=== PATIENT | male | born 1950 | race Caucasian/White ===

== ENCOUNTER 2016-09-22 20:14 | Emergency (ER) | payer MEDICARE, BC ==
[2016-09-22] MEDS ORDERED: HYDROmorphone 2 MG/ML Syringe IM ONE (20:30)
--- NOTE | 2016-09-22 20:35 | EDM.PDOC ---
ED HPI GENERAL MEDICAL PROBLEM - General Chief Complaint: General Stated Complaint: L shoulder injury Time Seen by Provider: 09/22/16 20:20 Source of Information: Reports: Patient History Limitations: Reports: No Limitations - History of Present Illness INITIAL COMMENTS - FREE TEXT/NARRATIVE: According to patient he was riding on the horse and he fell off the horse back wards and landed on his left back. he did hurts some. Pt claims he got up and tried to get back on the horse and thew the saddle back on the horse and felt sharp pain and since then he is not able to move his shoulder. Most of his pain is over the upper mid scapula. No nausea or vomiting. No loss of consciousness. No pain with deep breathing or chest movement.No other complaints. Location: Reports: Back Quality: Reports: Ache Severity: Severe Improves with: Reports: None Worsens with: Reports: None - Related Data Allergies Allergy/AdvReac Type Severity Reaction Status Date / Time No Known Allergies Allergy Verified 09/22/16 20:17 Home Meds: Home Meds Lisinopril [Prinivil] 10 mg PO DAILY 07/08/13 [History] Metoprolol Tartrate [Lopressor] 100 PO DAILY 07/08/13 [History] Warfarin Sodium [Jantoven] 4 mg PO DAILY 07/08/13 [History] amLODIPine Besylate [Amlodipine Besylate] 10 PO 07/08/13 [History] atorvaSTATin Calcium [Atorvastatin Calcium] 80 PO DAILY 07/08/13 [History] Social & Family History - Tobacco Use Years of Tobacco use: 15 Used Tobacco, but Quit: Yes Month Tobacco Last Used: August Second Hand Smoke Exposure: Yes - Alcohol Use Days Per Week of Alcohol Use: 2 Number of Drinks Per Day: 1 Total Drinks Per Week: 2 - Recreational Drug Use Recreational Drug Use: No ED ROS GENERAL - Review of Systems Review Of Systems: See Below Constitutional: Denies: Fever, Chills HEENT: Denies: Sinus Problem, Throat Pain, Throat Swelling Respiratory: Denies: Shortness of Breath, Cough, Sputum Cardiovascular: Denies: Chest Pain, Lightheadedness GI/Abdominal: Denies: Abdominal Pain, Nausea, Vomiting : Denies: Flank Pain Musculoskeletal: Reports: Back Pain. Denies: Shoulder Pain, Arm Pain, Joint Pain, Joint Swelling Skin: Reports: Bruising. Denies: Pruritis, Rash ED EXAM, GENERAL - Physical Exam Exam: See Below Exam Limited By: No Limitations General Appearance: Alert, WD/WN, Mild Distress Eye Exam: Bilateral Eye: EOMI, PERRL Ears: Normal External Exam, Normal Canal, Hearing Grossly Normal, Normal TMs Nose: Normal Inspection, Normal Mucosa, No Blood Throat/Mouth: Normal Inspection, Normal Lips, Normal Teeth, Normal Gums, Normal Oropharynx, Normal Voice, No Airway Compromise Head: Atraumatic, Normocephalic Neck: Normal Inspection, Supple, Non-Tender, Full Range of Motion Respiratory/Chest: No Respiratory Distress, Lungs Clear, Normal Breath Sounds, No Accessory Muscle Use, Chest Non-Tender Cardiovascular: Normal Peripheral Pulses, Regular Rate, Rhythm, No Edema, No Gallop, No JVD, No Murmur, No Rub Back Exam: Other (left upper back: there is swelling and bruising over the left upper back in the lwoer scapular region. Tender to palpation. No obvious crepitus felt. Painful with movement , pt guards and refuses to move the left shoulder . There is no tenderness around the shoulder or right humerus.). No: Paraspinal Tenderness, Vertebral Tenderness Course - Vital Signs Text/Narrative:: Xray of the left scapula shows left 3rd and 4th rib fracture over the posterior aspect of the back. also there is questionable fracture at the angle of the scapular spine. I have reassured patient that he has left scapular and left 3rd and 4th rib fractures. There is no pnuemothorax. I have applied arm sling. He did received dilaudid 2mg for the pain. I have advised to take vicodin 5/325 1-2 tabs every 8 hrs and take extra strength tylenol . Deep breathing exercises every 2-3 hrs. Cold compresses. followup in the clinic in 2 wks for recheck. - Orders/Labs/Meds Orders: Active Orders 24 hr Category Date Time Status Scapula Lt [CR] Stat Exams 09/22/16 20:26 Taken Meds: Medications Discontinued Medications Generic Name Dose Route Start Last Admin Trade Name Freq PRN Reason Stop Dose Admin Hydromorphone HCl 2 mg 09/22/16 20:30 Dilaudid IM 09/22/16 20:31 ONETIME ONE Departure - Departure Time of Disposition: 21:30 Disposition: Home, Self-Care 01 Condition: Fair Clinical Impression: Closed left scapular fracture, Left rib fracture - Discharge Information Instructions: Acetaminophen; Hydrocodone tablets or capsules, Scapular Fracture , Rib Fracture, [id number] Referrals: PCP,None [Primary Care Provider] - Forms: ED Department Discharge Additional Instructions: Take provided Vicodin as directed: 1-2 tablets by mouth every 8 hours for pain. Alternate with 1,000mg Extra Strength Tylenol every 8 hours for pain. 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 Apply cold compress to back, area of affected ribs , for 10 minutes every 2-3 hours for additional comfort. Be sure to deep breathe every hour (10 breaths/hour). Activity as tolerated. Keep sling in place at all times. Follow up in clinic in 2 weeks. Call with any questions. - Problem List & Annotations (1) Closed left scapular fracture SNOMED Code(s): 69112078 Code(s): S42.102A - FRACTURE OF UNSP PART OF SCAPULA, LEFT SHOULDER, INIT Status: Acute Current Visit: Yes (2) Left rib fracture SNOMED Code(s): 37624964 Code(s): S22.32XA - FRACTURE OF ONE RIB, LEFT SIDE, INIT FOR CLOS FX Status : Acute Current Visit: Yes - Problem List Review Problem List Initiated/Reviewed/Updated: Yes - My Orders Last 24 Hours: My Active Orders 09/22/16 20:26 Scapula Lt [CR] Stat - Assessment/Plan Last 24 Hours: My Active Orders 09/22/16 20:26 Scapula Lt [CR] Stat Assessment:: Left scapular fracture with left 3rd and fourth rib posterior fracture Plan: Xray of the left scapula shows left 3rd and 4th rib fracture over the posterior aspect of the back. also there is questionable fracture at the angle of the scapular spine. I have reassured patient that he has left scapular and left 3rd and 4th rib fractures. There is no pnuemothorax. I have applied arm sling. He did received dilaudid 2mg for the pain. I have advised to take vicodin 5/325 1-2 tabs every 8 hrs and take extra strength tylenol . Deep breathing exercises every 2-3 hrs. Cold compresses. followup in the clinic in 2 wks for recheck.
[2016-09-22] MEDS ORDERED: Acetaminophen/HYDROcodone 325-5 MG Tab ONE (21:30)
[2016-09-23 06:20] VITALS: BP 141/62
--- NOTE | 2016-09-23 10:26 | CR ---
DATE OF SERVICE: 09/22/2016 CLINICAL DATA: Fell off the horse. LEFT SCAPULA I do not see a definite scapular fracture. There is deformity of the left fourth, fifth, and sixth ribs posterolaterally consistent with fractures. [id number] [facility]
== END 2016-09-22 21:20 | disposition home or self-care (01) ==
LOC: LB.ED 20:14
DX: S42.102A Fracture of unspecified part of scapula, left shoulder, initial encounter for closed fracture (principal); S22.32XA Fracture of one rib, left side, initial encounter for closed fracture; V80.010A Animal-rider injured by fall from or being thrown from horse in noncollision accident, initial encounter; Z79.899 Other long term (current) drug therapy; Z79.01 Long term (current) use of anticoagulants
CPT/HCPCS: 73010; 96372; 99283; A9270; J1170

== ENCOUNTER 2017-06-29 19:57 | Emergency (ER) | payer MEDICARE, BC | END 2017-06-29 21:00 | LOC: LB.ED 19:57 | DX: K62.5 Hemorrhage of anus and rectum (principal); I11.0 Hypertensive heart disease with heart failure; I50.9 Heart failure, unspecified; E11.9 Type 2 diabetes mellitus without complications; Z79.01 Long term (current) use of anticoagulants; Z79.899 Other long term (current) drug therapy; Z79.82 Long term (current) use of aspirin; Z79.84 Long term (current) use of oral hypoglycemic drugs | CPT/HCPCS: 36415; 80048; 85025; 85610; 99283; 99284 ==

== ENCOUNTER 2025-01-09 14:20 | Emergency (ER) | payer MEDICARE ==
[2025-01-09] MEDS ORDERED: Sodium Chloride 0.9% 10 ML Syringe FLUSH PRN (15:42)
[2025-01-09 16:17] LABS: INR 2.5 (1.0-3.5); PTT,PARTIAL THROMBOPLSTIN TIME 30.1 SECONDS (24.4-33.2)
== END 2025-01-09 18:02 ==
LOC: LB.ED 14:20
DX: D64.9 Anemia, unspecified (principal); I95.9 Hypotension, unspecified; E86.1 Hypovolemia; I10 Essential (primary) hypertension; E11.9 Type 2 diabetes mellitus without complications; Z79.01 Long term (current) use of anticoagulants; Z79.899 Other long term (current) drug therapy
CPT/HCPCS: 36415; 36430; 70450; 85610; 85730; 86850; 86900; 86901; 86920; 86922; 99285; A0425; A0428; P9016